=== PATIENT | female | born 1980 | race Caucasian/White ===

== ENCOUNTER → 2016-12-16 15:42 | Outpatient (CLI) | payer BC, MEDICAID | END | disposition home or self-care (01) | LOC: D.MRI 15:42 | DX: G43.909 Migraine, unspecified, not intractable, without status migrainosus (principal) ==

== ENCOUNTER → 2017-06-19 13:43 | Outpatient (CLI) | payer BC, MEDICAID | END | disposition home or self-care (01) | LOC: D.MAMMO 05-07 16:15 | DX: Z12.31 Encounter for screening mammogram for malignant neoplasm of breast (principal) ==

== ENCOUNTER 2017-12-27 10:06 | Emergency (ER) | payer MEDICAID ==
[~2017-12-27] VITALS: Ht 165.1 cm; Wt 61.4 kg
[2017-12-27 10:14] VITALS: Ht 165.1 cm; Wt 61.4 kg
[2017-12-27] MEDS ORDERED: IBS MEDICATION (10:15)
[2017-12-27] MEDS ORDERED: ESTROGEN (10:15)
[2017-12-27] MEDS ORDERED: VITAMIN D3400 UNI1 PO (10:15)
[2017-12-27 10:42] LABS: BASOPHILS 0.1 % (0-2); EOSINOPHILS 0.2 % (0-7); HEMATOCRIT 44.1 % (36.0-48.0); HEMOGLOBIN 15.3 g/dL (12-16); IMMATURE GRANULOCYTES 0.2 % (0-5); LYMPHOCYTES 4.6 % (15-50); MCH 34.1 pg (26.0-34.0); MCHC 34.7 g/dL (31.0-37.0); MCV 98.2 fL (80.0-100.0); MEAN PLATELET VOLUME 10.7 fL (7.4-10.4); MONOCYTES 6.3 % (2-11); NEUTROPHILS 88.6 % (40-80); PLATELET COUNT 222 10x3/uL (130-400); RBC 4.49 10x6/uL (4.00-5.40); RDW 12.9 % (11.5-14.5); WBC 10.1 10x3/uL (4.8-10.8)
[2017-12-27 11:11] LABS: APPEARANCE CLEAR (CLEAR); BILIRUBIN NEGATIVE (NEGATIVE); COLOR YELLOW (YELLOW); GLUCOSE NEGATIVE (NEGATIVE); KETONE NEGATIVE (NEGATIVE); NITRITE NEGATIVE (NEGATIVE); PROTEIN NEGATIVE (NEGATIVE); UROBILINOGEN NORMAL (NORMAL)
[2017-12-27 11:12] LABS: BACTERIA FEW /hpf (NONE SEEN); EPITHELIAL CELLS 0-5 /hpf (0-5); RED CELLS - URINE 0-5 /hpf (0-5); WHITE CELLS - URINE 0-5 /hpf (0-5)
[2017-12-27 11:40] LABS: ALBUMIN 3.7 g/dL (3.4-5.0); ALKALINE PHOSPHATASE 81 U/L (46-116); ALT (SGPT) 12 U/L (10-68); BILIRUBIN - TOTAL 1.23 mg/dL (0.2-1.3); CALC OSMOLALITY 271 mosm/kg (275-300); CALCIUM 8.4 mg/dL (8.5-10.1); CARBON DIOXIDE 22.6 mmol/L (21.0-32.0); CHLORIDE - SERUM 103 mmol/L (98-107); CREATININE - SERUM 0.8 mg/dL (0.6-1.3); GLUCOSE 101 mg/dL (74-106); POTASSIUM - SERUM 3.7 mmol/L (3.5-5.1); PROTEIN - SERUM 6.7 g/dL (6.4-8.2); SODIUM 136 mmol/L (136-145); UREA NITROGEN 13 mg/dL (7-18); eGFR NON AFRICAN AMERICAN 85 mL/min (90-120)
[2017-12-27] MEDS ORDERED: LOMOTIL TABLET1 TAB PO (12:01)
[2017-12-27 13:00] VITALS: BP 118/66
[2017-12-28] MEDS ORDERED: LINZESS145 MCG PO (17:42)
[2017-12-28] MEDS ORDERED: PREMARIN45 GM VG (17:45)
[2017-12-29 12:43] VITALS: Ht 165.1 cm; Wt 61.4 kg
== END 2017-12-27 13:05 | disposition home or self-care (01) ==
LOC: D.ER 10:06
PROVIDERS: Emergency Medicine
DX: R19.7 Diarrhea, unspecified (principal); R10.30 Lower abdominal pain, unspecified; R11.0 Nausea; Z87.19 Personal history of other diseases of the digestive system; M79.7 Fibromyalgia; F17.200 Nicotine dependence, unspecified, uncomplicated

== ENCOUNTER 2017-12-28 09:14 | Inpatient (IN) | payer MEDICAID ==
[2017-12-28] VITALS (8 sets, daily range): BP systolic 87–111; BP diastolic 47–70; BMI 23.3
[~2017-12-28] VITALS: Ht 165.1 cm; Wt 63.5 kg
--- NOTE | ~2017-12-28 | DS ---
PATIENT:TERESA ALVAREZ :76 MEDICAL RECORD: [id number] DISCHARGE SUMMARY ADMISSION DATE: 12/28/17 DISCHARGE DATE: 01/01/18 DATE OF ADMISSION: 12/28/2017. DATE OF DISCHARGE: 01/01/2018. ADMISSION DIAGNOSES: Infectious colitis, diarrhea, abdominal pain. DISCHARGE DIAGNOSES: Infectious colitis, diarrhea, abdominal pain. CONSULTS: GI. PROCEDURES: CT abdomen and pelvis showing colitis. HOSPITAL COURSE: The patient had an uneventful hospital course, hydrated with IV fluids. A CT showed colitis. Stool cultures showed E. coli. The patient was started on IV antibiotics, held n.p.o. with IV fluids initially, then progressed to clear liquid diet, continued to improve, tolerating a regular diet since last night, has remained afebrile for the last 2 days, is anxious to go home, cleared for discharge by GI. Discharged to home in significantly improved condition. PHYSICAL EXAMINATION: VITAL SIGNS ON DISCHARGE: Temperature 98.2, blood pressure 113/77, heart rate 57, respirations 20, O2 sats 97% on room air. GENERAL: Alert, oriented, no acute distress. HEART: Regular rate and rhythm. LUNGS: Clear. ABDOMEN: Soft, nontender. Bowel sounds positive. EXTREMITIES: Present times 4. NEUROLOGIC: Intact. The patient admits having bowel movements. LABORATORY DATA: CBC on discharge: White count 5, hemoglobin 10.7, hematocrit 32.3, platelets 216. Chemistry is normal. The patient is discharged to home in significantly improved condition. Will follow up with Dr. Landa next week. [place] diet, advance as tolerated. DISCHARGE MEDICATIONS: Per med rec. See chart for further details. 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
[~2017-12-28 09:14] MED LIST: ESTROGEN; IBS MEDICATION; LOMOTIL TABLET1 TAB PO; VITAMIN D3400 UNI1 PO
[2017-12-28 09:56] LABS: BASOPHILS 0.1 % (0-2); EOSINOPHILS 0.1 % (0-7); HEMATOCRIT 44.2 % (36.0-48.0); HEMOGLOBIN 15.2 g/dL (12-16); IMMATURE GRANULOCYTES 0.1 % (0-5); LYMPHOCYTES 9.1 % (15-50); MCH 34.1 pg (26.0-34.0); MCHC 34.4 g/dL (31.0-37.0); MCV 99.1 fL (80.0-100.0); MEAN PLATELET VOLUME 10.4 fL (7.4-10.4); MONOCYTES 4.5 % (2-11); NEUTROPHILS 86.1 % (40-80); PLATELET COUNT 181 10x3/uL (130-400); RBC 4.46 10x6/uL (4.00-5.40); RDW 12.8 % (11.5-14.5); WBC 7.7 10x3/uL (4.8-10.8)
[2017-12-28 10:09] LABS: ALBUMIN 3.7 g/dL (3.4-5.0); ALKALINE PHOSPHATASE 82 U/L (46-116); BILIRUBIN - TOTAL 1.16 mg/dL (0.2-1.3); CALCIUM 8.3 mg/dL (8.5-10.1); CARBON DIOXIDE 26.4 mmol/L (21.0-32.0); CHLORIDE - SERUM 103 mmol/L (98-107); CREATININE - SERUM 0.8 mg/dL (0.6-1.3); GLUCOSE 89 mg/dL (74-106); PROTEIN - SERUM 6.8 g/dL (6.4-8.2); SODIUM 140 mmol/L (136-145); eGFR NON AFRICAN AMERICAN 85 mL/min (90-120)
[2017-12-28 10:10] LABS: ALT (SGPT) 20 U/L (10-68); CALC OSMOLALITY 275 mosm/kg (275-300); UREA NITROGEN 7 mg/dL (7-18)
[2017-12-28 10:11] LABS: POTASSIUM - SERUM 3.9 mmol/L (3.5-5.1)
[2017-12-28 10:43] LABS: APPEARANCE HAZY (CLEAR); COLOR DK YELLOW (YELLOW); GLUCOSE NEGATIVE (NEGATIVE); NITRITE NEGATIVE (NEGATIVE); PROTEIN NEGATIVE (NEGATIVE); SPECIFIC GRAVITY 1.025 (1.005-1.020)
[2017-12-28 10:44] LABS: BACTERIA FEW /hpf (NONE SEEN); BILIRUBIN NEGATIVE (NEGATIVE); EPITHELIAL CELLS 0-5 /hpf (0-5); KETONE LARGE mg/dL (NEGATIVE); MUCUS <1+ /lpf (NONE SEEN); RED CELLS - URINE OCC /hpf (0-5); UROBILINOGEN NORMAL (NORMAL); WHITE CELLS - URINE OCC /hpf (0-5)
[2017-12-28] MEDS ORDERED: LINZESS145 MCG PO (17:42)
[2017-12-28] MEDS ORDERED: PREMARIN45 GM VG (17:45)
[2017-12-29 04:12] LABS: BASOPHILS 0.2 % (0-2); EOSINOPHILS 1.8 % (0-7); IMMATURE GRANULOCYTES 0.2 % (0-5); LYMPHOCYTES 18.4 % (15-50); MCH 32.9 pg (26.0-34.0); MCHC 33.2 g/dL (31.0-37.0); MCV 99.1 fL (80.0-100.0); MEAN PLATELET VOLUME 9.8 fL (7.4-10.4); NEUTROPHILS 69.4 % (40-80); PLATELET COUNT 158 10x3/uL (130-400); RDW 12.8 % (11.5-14.5)
[2017-12-29 04:31] LABS: HEMATOCRIT 34.3 % (36.0-48.0); HEMOGLOBIN 11.4 g/dL (12-16); RBC 3.46 10x6/uL (4.00-5.40)
[2017-12-29 04:32] LABS: ALKALINE PHOSPHATASE 49 U/L (46-116); BILIRUBIN - TOTAL 0.46 mg/dL (0.2-1.3); CALC OSMOLALITY 271 mosm/kg (275-300); CALCIUM 7.6 mg/dL (8.5-10.1); CARBON DIOXIDE 28.6 mmol/L (21.0-32.0); CHLORIDE - SERUM 105 mmol/L (98-107); CREATININE - SERUM 0.8 mg/dL (0.6-1.3); GLUCOSE 99 mg/dL (74-106); MAGNESIUM - SERUM 1.6 mg/dL (1.8-2.4); PHOSPHOROUS 2.5 mg/dL (2.5-4.9); POTASSIUM - SERUM 3.5 mmol/L (3.5-5.1); PROTEIN - SERUM 5.1 g/dL (6.4-8.2); SODIUM 137 mmol/L (136-145); UREA NITROGEN 6 mg/dL (7-18); eGFR NON AFRICAN AMERICAN 85 mL/min (90-120)
[2017-12-29 04:34] LABS: ALBUMIN 2.4 g/dL (3.4-5.0); ALT (SGPT) 14 U/L (10-68)
[2017-12-29 05:15] VITALS: BP 98/51
[2017-12-29 08:27] VITALS: BP 86/56
[2017-12-29 12:43] VITALS: BP 88/47; Ht 165.1 cm; Wt 63.5 kg
[2017-12-29 20:00] VITALS: BP 102/74
[2017-12-30 04:00] VITALS: BP 88/51
[2017-12-30 04:24] LABS: BASOPHILS 0.2 % (0-2); EOSINOPHILS 3.2 % (0-7); HEMATOCRIT 32.6 % (36.0-48.0); HEMOGLOBIN 10.8 g/dL (12-16); IMMATURE GRANULOCYTES 0.2 % (0-5); LYMPHOCYTES 28.1 % (15-50); MCH 32.8 pg (26.0-34.0); MCHC 33.1 g/dL (31.0-37.0); MCV 99.1 fL (80.0-100.0); NEUTROPHILS 56.3 % (40-80); PLATELET COUNT 158 10x3/uL (130-400); RBC 3.29 10x6/uL (4.00-5.40); RDW 12.8 % (11.5-14.5); WBC 4.1 10x3/uL (4.8-10.8)
[2017-12-30 04:52] LABS: ALBUMIN 2.4 g/dL (3.4-5.0); ALKALINE PHOSPHATASE 45 U/L (46-116); BILIRUBIN - TOTAL 0.34 mg/dL (0.2-1.3); CALCIUM 7.7 mg/dL (8.5-10.1); CARBON DIOXIDE 29.7 mmol/L (21.0-32.0); CHLORIDE - SERUM 104 mmol/L (98-107); CREATININE - SERUM 0.7 mg/dL (0.6-1.3); GLUCOSE 110 mg/dL (74-106); MAGNESIUM - SERUM 1.9 mg/dL (1.8-2.4); POTASSIUM - SERUM 3.8 mmol/L (3.5-5.1); PROTEIN - SERUM 5.1 g/dL (6.4-8.2); SODIUM 139 mmol/L (136-145); eGFR NON AFRICAN AMERICAN > 90 mL/min (90-120)
[2017-12-30 05:00] LABS: ALT (SGPT) 9 U/L (10-68); CALC OSMOLALITY 275 mosm/kg (275-300); PHOSPHOROUS 3.3 mg/dL (2.5-4.9); UREA NITROGEN 3 mg/dL (7-18)
[2017-12-30 08:28] VITALS: BP 93/56
[2017-12-30 12:15] VITALS: BP 90/57
[2017-12-30 16:39] VITALS: BP 90/58
[2017-12-30 20:00] VITALS: BP 97/43
[2017-12-31 04:00] VITALS: BP 103/52
[2017-12-31 04:31] LABS: BASOPHILS 0.3 % (0-2); EOSINOPHILS 2.7 % (0-7); HEMATOCRIT 31.5 % (36.0-48.0); HEMOGLOBIN 10.3 g/dL (12-16); MCH 32.6 pg (26.0-34.0); MCHC 32.7 g/dL (31.0-37.0); MCV 99.7 fL (80.0-100.0); MONOCYTES 10.6 % (2-11); NEUTROPHILS 56.4 % (40-80); PLATELET COUNT 174 10x3/uL (130-400); RBC 3.16 10x6/uL (4.00-5.40); RDW 12.7 % (11.5-14.5); WBC 3.8 10x3/uL (4.8-10.8)
[2017-12-31 05:01] LABS: ALBUMIN 2.3 g/dL (3.4-5.0); ALKALINE PHOSPHATASE 44 U/L (46-116); BILIRUBIN - TOTAL 0.32 mg/dL (0.2-1.3); CALCIUM 7.5 mg/dL (8.5-10.1); CARBON DIOXIDE 27.3 mmol/L (21.0-32.0); CHLORIDE - SERUM 109 mmol/L (98-107); CREATININE - SERUM 0.8 mg/dL (0.6-1.3); GLUCOSE 93 mg/dL (74-106); MAGNESIUM - SERUM 1.8 mg/dL (1.8-2.4); PHOSPHOROUS 4.1 mg/dL (2.5-4.9); POTASSIUM - SERUM 3.9 mmol/L (3.5-5.1); PROTEIN - SERUM 4.7 g/dL (6.4-8.2); SODIUM 142 mmol/L (136-145); eGFR NON AFRICAN AMERICAN 85 mL/min (90-120)
[2017-12-31 05:02] LABS: ALT (SGPT) 18 U/L (10-68); CALC OSMOLALITY 278 mosm/kg (275-300); UREA NITROGEN 2 mg/dL (7-18)
[2017-12-31 21:00] VITALS: BP 99/62
[2018-01-01 04:00] VITALS: BP 90/51
[2018-01-01 04:21] LABS: BASOPHILS 0.2 % (0-2); EOSINOPHILS 1.8 % (0-7); HEMATOCRIT 32.3 % (36.0-48.0); HEMOGLOBIN 10.7 g/dL (12-16); IMMATURE GRANULOCYTES 0.4 % (0-5); LYMPHOCYTES 22.6 % (15-50); MCH 32.4 pg (26.0-34.0); MCHC 33.1 g/dL (31.0-37.0); MCV 97.9 fL (80.0-100.0); MEAN PLATELET VOLUME 9.8 fL (7.4-10.4); MONOCYTES 8.1 % (2-11); NEUTROPHILS 66.9 % (40-80); PLATELET COUNT 216 10x3/uL (130-400); RDW 12.5 % (11.5-14.5)
[2018-01-01 04:40] LABS: ALBUMIN 2.5 g/dL (3.4-5.0); ALKALINE PHOSPHATASE 70 U/L (46-116); ALT (SGPT) 21 U/L (10-68); BILIRUBIN - TOTAL 0.42 mg/dL (0.2-1.3); CALCIUM 7.8 mg/dL (8.5-10.1); CARBON DIOXIDE 27.4 mmol/L (21.0-32.0); CHLORIDE - SERUM 107 mmol/L (98-107); CREATININE - SERUM 0.7 mg/dL (0.6-1.3); GLUCOSE 106 mg/dL (74-106); MAGNESIUM - SERUM 1.8 mg/dL (1.8-2.4); PHOSPHOROUS 4.1 mg/dL (2.5-4.9); POTASSIUM - SERUM 3.8 mmol/L (3.5-5.1); PROTEIN - SERUM 5.1 g/dL (6.4-8.2); SODIUM 139 mmol/L (136-145); eGFR NON AFRICAN AMERICAN > 90 mL/min (90-120)
[2018-01-01 04:44] LABS: CALC OSMOLALITY 274 mosm/kg (275-300); UREA NITROGEN 3 mg/dL (7-18)
[2018-01-01 08:28] VITALS: BP 113/77
[2018-01-01] MEDS ORDERED: LEVAQUIN500 MG PO (08:38)
[2018-01-02 14:11] LABS: OVA + PARASITE EXAM Final report (())
== END 2018-01-01 11:15 | disposition home or self-care (01) | DRG 392 ==
LOC: D.ER 09:14 → D.EDHOLD 15:34 → D.MS 15:34
PROVIDERS: Emergency Medicine; Family Medicine
DX: A09 Infectious gastroenteritis and colitis, unspecified (principal); K56.7 Ileus, unspecified; K58.9 Irritable bowel syndrome, unspecified; M79.7 Fibromyalgia; R51 Headache; D64.9 Anemia, unspecified

== ENCOUNTER → 2018-01-27 11:36 | Outpatient (CLI) | payer BC, MEDICAID ==
[2017-12-29 12:43] VITALS: BMI 23.2
[~2018-01-27 11:36] MED LIST changes: +LEVAQUIN500 MG PO; +LINZESS145 MCG PO; +PREMARIN45 GM VG
== END | disposition home or self-care (01) ==
LOC: D.NM 11:36
DX: R10.13 Epigastric pain (principal)